=== PATIENT | male | born 2000 | race Caucasian/White ===

== ENCOUNTER → 2021-10-25 | Outpatient (CLI) | payer BC ==
--- NOTE | 2021-10-25 09:10 | XR ---
EXAMINATION TYPE: XR knee complete LT DATE OF EXAM: 10/25/2021 COMPARISON: NONE HISTORY: Pain TECHNIQUE: Three views are submitted. FINDINGS: Joint spaces are preserved. Osseous structures are intact. No acute fracture seen. Small nonglucos e patellar bursa. IMPRESSION: 1. No acute fracture or dislocation. Small suprapatellar bursal fluid collection. Occasionally be as sociated with internal derangement. Correlate with MRI as clinically warranted.
== END | disposition home or self-care (01) ==
LOC: RADXRYALE 08:51
PROVIDERS: ATTEND Physician Assistant Medical
DX: M25.562 Pain in left knee (principal)